=== PATIENT | female | born 1980 | race Caucasian/White ===

== ENCOUNTER → 2021-07-11 | Outpatient (CLI) | payer BC, OTHER ==
[~2021-07-11] MED LIST: GAS EX PO; IBUPROFEN600 MG PO; PHENERGAN 25 MG25 M1 PO; TYLENOL W/CODEIN1 E1 PO; [UNRECOGNIZED DRUG - OTHER] PO
== END ==
LOC: MAMO 08:21
DX: Z12.31 Encounter for screening mammogram for malignant neoplasm of breast (principal)
CPT/HCPCS: 77063; 77067